=== PATIENT | female | born 1990 | race Caucasian/White ===

== ENCOUNTER 2017-10-01 10:23 | Inpatient (IN) ==
[2017-10-01] MEDS ORDERED: Citric Acid/Sodium Citrate Liq 30 ML UDC PO SCH (11:15)
[2017-10-01 11:38] LABS: Baso % (Auto) 0.5 % (0.0-2.0); Eos # (Auto) 0.1 th/mm3 (0.0-0.4); Eos % (Auto) 1.3 % (0.0-4.0); Hematocrit 33.6 % (35.0-46.0); Hemoglobin 10.9 gm/dL (11.6-15.3); Lymph # (Auto) 1.1 th/mm3 (1.0-4.8); Lymph % (Auto) 13.1 % (9.0-44.0); Mean Corpuscular HGB Conc 32.5 % (32.0-36.0); Mean Corpuscular Hemoglobin 23.7 pg (27.0-34.0); Mean Platelet Volume 7.4 fL (7.0-11.0); Mono # (Auto) 0.6 th/mm3 (0.0-0.9); Neut # (Auto) 6.7 th/mm3 (1.8-7.7); Neut % (Auto) 78.1 % (16.0-70.0); Platelet Count 237 th/mm3 (150-450); Red Blood Count 4.61 mil/mm3 (4.00-5.30); Red Cell Distribution Width 14.6 % (11.6-17.2); White Blood Count 8.6 th/mm3 (4.0-11.0)
--- NOTE | 2017-10-01 11:42 | P.HPOB ---
History of Present Illness Service: 39 week repeat CS Primary Care Physician: Matt Finch MD, PhD History of Present Illness: 26 yo here for repeat CS at 39 weeks Weeks Gestation:: 39 Para: 1 : 2 - Inpatient Certification I certify that the inpatient services were ordered in accordance with Medicare regulations governing the order. This includes certification that hospital inpatient services are reasonable and necessary and in the case of services not specified as inpatient-only under 42 CFR 419.22(n), that they are appropriately provided as inpatient services in accordance to with the 2-midnight benchmark under 43 CFR 412.3(e) Estimated Total Length of Stay (Days): 3 Plans for Post Hospital Care: Home Review of Systems All other systems reviewed negative except as stated in HPI PMFSH - Medical / Surgical Hx Neg / Unobtainable Medical Problems Denied: Yes Surgical History: No Previous Surgery - Medical History Medical History: Medical History (Last Updated 10/01/17 @ 11:40 by Vernon Mcintyre MD) delivery delivered - Tobacco History Second Hand Smoke Exposure: No Tobacco Use In Past 30 Days: No Smoking Status: Never smoker Medications and Allergies Active Medications: Active Medications Citric Acid/Sodium Citrate (Sodium Citrate/Citric Acid Liq) 30 ml PO MAST MAKER [facility] Stop: 10/05/17 11:14 Cefazolin Sodium 2,000 mg/ (Sodium Chloride) 100 mls @ 200 mls/hr IV.SIG MAST MAKER GAR[facility] Stop: 10/05/17 11:59 Lactated Ringer's (Lr 1000 Ml Inj) 1,000 mls @ 2,000 mls/hr IV.SIG .Q30M ONE Stop: 10/01/17 11:31 Lactated Ringer's (Lr 1000 Ml Inj) 1,000 mls @ 150 mls/hr IV.CONT .Q6H40M [facility] Allergies Allergy/AdvReac Type Severity Reaction Status Date / Time No Known Allergies Allergy Unverified 10/01/17 11:25 Exam Vital signs: Vital Signs 10/01/17 10:53 10/01/17 11:00 Temperature 98.4 F Pulse Rate 76 99 H Respiratory Rate 16 Blood Pressure 106/69 109/69 Intake & Output 09/30/17 10/01/17 10/01/17 18:59 06:59 18:59 Weight 158 kg Other: Weight On Admission 158 kg - Constitutional no acute distress - Routine HEENT Exam Head: Present: normocephalic ENT: Present: mucous membranes moist - Routine Neck Exam Present: supple - Routine Respiratory Exam Present: CTA bilaterally - Routine Cardiovascular Exam Present: RRR - Routine Abdominal Exam Present: soft, normoactive bowel sounds - Routine Extremities Exam Present: full ROM - Routine Skin Exam Present: intact - Routine Neurological Exam Present: alert, oriented X3 Results - Labs CBC & Chem 7: 10/01/17 11:15 Caprini VTE Risk Assessment Caprini VTE Risk Assessment: No/Low Risk (score <= 1) Mehdirini Risk Assessment Model: Point Value = 1 Point Value = 2 Point Value = 3 Point Value = 5 Age 41-60 Minor surgery BMI > 25 kg/m2 Swollen legs Varicose veins or History of unexplained or recurrent spontaneous Oral contraceptives or hormone replacement Sepsis (< 1 month) Serious lung disease, including pneumonia (< 1 month) Abnormal pulmonary function Acute myocardial infarction Congestive heart failure (< 1 month) History of inflammatory bowel disease Medical patient at bed rest Age 61-74 Arthroscopic surgery Major open surgery (> 45 min) Laparoscopic surgery (> 45 min) Malignancy Confined to bed (> 72 hours) Immobilizing plaster cast Central venous access Age >= 75 History of VTE Family history of VTE Factor V Leiden Prothrombin [id number] Lupus anticoagulant Anticardiolipin antibodies Elevated serum homocysteine Heparin-induced thrombocytopenia Other congenital or acquired thrombophilia Stroke (< 1 month) Elective arthroplasty Hip, pelvis, or leg fracture Acute spinal cord injury (< 1 month) Prophylaxis Regimen: Total Risk Factor Score Risk Level Prophylaxis Regimen 0-1 Low Early ambulation 2 Moderate Order ONE of the following: *Sequential Compression Device (SCD) *Heparin 5000 units SQ BID 3-4 Higher Order ONE of the following medications: *Heparin 5000 units SQ TID *Enoxaparin/Lovenox 40 mg SQ daily (WT < 150 kg, CrCl > 30 mL/min) *Enoxaparin/Lovenox 30 mg SQ daily (WT < 150 kg, CrCl > 10-29 mL/min) *Enoxaparin/Lovenox 30 mg SQ BID (WT < 150 kg, CrCl > 30 mL/min) AND/OR *Sequential Compression Device (SCD) 5 or more Highest Order ONE of the following medications: *Heparin 5000 units SQ TID (Preferred with Epidurals) *Enoxaparin/Lovenox 40 mg SQ daily (WT < 150 kg, CrCl > 30 mL/min) *Enoxaparin/Lovenox 30 mg SQ daily (WT < 150 kg, CrCl > 10-29 mL/min) *Enoxaparin/Lovenox 30 mg SQ BID (WT < 150 kg, CrCl > 30 mL/min) AND *Sequential Compression Device (SCD) Assessment and Plan - Diagnosis (1) delivery delivered Code(s): O82 - Encounter for delivery without indication Status: Acute (2) 39 weeks gestation of Code(s): Z3A.39 - 39 weeks gestation of Status: Acute - Plan CS and DC home pod #2
[2017-10-01] MEDS ORDERED: ceFAZolin Inj 2,000 MG in Sodium Chlor 0.9% Inj 80 ML IV.SIG SCH (12:00)
[2017-10-01] MEDS ORDERED: Morphine Sulfate PF Inj 5 MG/10 ML Ampul ONE (12:15)
[2017-10-01] MEDS ORDERED: Naloxone Inj 0.4 MG/ML Vial IV.PUSH PRN (12:30)
[2017-10-01] MEDS ORDERED: Phenylephrine/NS 1000 MCG/10ML Syringe IV.PUSH ONE (13:11)
[2017-10-01] MEDS ORDERED: Ketorolac Inj 30 MG/ML (IVP) Vial IV.PUSH ONE (13:11)
[2017-10-01] MEDS ORDERED: Oxytocin 30 Units/500ml Premix 30 UNITS/500 ML BAG IV.SIG ONE ×2 (13:23→19:10)
--- NOTE | 2017-10-01 13:26 | P.OBDELI ---
Procedure Note - Pre Op Diagnosis (1) delivery delivered (2) 39 weeks gestation of - Post Op Diagnosis (1) delivery delivered (2) 39 weeks gestation of Performed by: Vernon Mcintyre MD Procedure: Repeat Low Transverse Section Indication for Delivery: Desired elective repeat Informed Consent Obtained: For anesthesia, For procedure Confirmed Correct: Patient, Procedure, Time-out taken Anesthesia: Spinal Monitoring During Procedure: Blood pressure monitoring Urinary Catheter: Inserted using sterile technique, To dependent drainage Sterile Preparation: Duraprep Position: Supine with wedge to left side - Operative Features Skin Incision: Pfannenstiel Uterine Incision: Low transverse w/knife / blunt ext Membranes Ruptured: Artificially Presentation: Occiput anterior Status of Infant: Viable Placenta Delivered: Intact Medications: Antibiotics (vacuum applied 2x easy pull at ociput) Estimated blood loss (mL): 400 Procedure Tolerated: Well Maternal Condition: Stable Baby Condition: Stable - Infant Infant: Male
[2017-10-01] MEDS ORDERED: fentaNYL Citrate Inj 100 MCG/2 ML Ampul ONE (14:03)
--- NOTE | 2017-10-01 14:04 | MP ---
cc: Vernon Mcintyre MD DATE OF OPERATION: 10/01/2017 PROCEDURE PERFORMED: Repeat low transverse section with an umbilical hernia repair. PREOPERATIVE DIAGNOSIS: At 39 weeks for elective repeat. POSTOPERATIVE DIAGNOSIS: At 39 weeks for elective repeat. SURGEON: Vernon Mcintyre MD ESTIMATED BLOOD LOSS: 400 mL. COMPLICATIONS: None. FINDINGS: Live male , Apgars of 8 and 9. Vacuum was applied. ANESTHESIA: Spinal, Lashae Flores, STRIP MACHINE TENDER. COMPLICATIONS: None. PROCEDURE IN DETAIL: After informed consent, the patient was taken to the operating room where she was placed under spinal anesthesia, placed in supine position with left lateral tilt and abdomen, perineum, and vagina were prepped and draped in normal sterile fashion. After adequate anesthesia and a timeout was taken for both the and the umbilical hernia repair and the patient's was brought into the room, a Pfannenstiel skin incision was carried sharply through the old scar to the fascia. The fascia was nicked in the midline. The incision was extended laterally using Granados scissors. The rectus muscle dissected off the fascia with sharp dissection secondary to scar tissue and the rectus muscle was , peritoneum had to be entered sharply secondary scar tissue. Once the peritoneum was entered, we found some scar tissue of the uterus to the anterior abdominal wall, which were some loose filmy adhesions. These were all taken down with scissors. Once the bladder flap was created, bladder was noted to be pulled way up on the uterus, bladder flap was created and then the bladder was pushed down. A low transverse uterine incision was then made, carried sharply to the uterine cavity, clear fluid was noted. The uterine incision was enlarged using blunt traction. A hand was placed into the uterus. The 's head did not readily come to the incision. Despite fundal pressure, the 's head still did not come down very well and seemed to be very movable. Once we got it applied, but not delivering, a vacuum was applied to the occiput portion. With gentle traction upward, the infant's head came down slightly and the vacuum popped off with not much traction. The infant's head was repositioned so the occiput could be grasped and then the vacuum applied one more time. Using 2 techs to push the baby at the fundus and gentle traction upward, the head delivered. Once the head delivered, shoulders were delivered. The infant was noted to be not attempting respiratory effort, so the cord was clamped and cut without delaying 45 seconds. Once the infant was handed to pediatrics, it started to cry and by the time respiratory therapy saw the within the first 20 seconds, the infant was crying well. The cord blood was collected. Placenta was delivered manually. The uterus exteriorized, wiped free from all remaining products of conception. The uterine incision was closed in a running locked stitch of chromic suture. Good hemostasis was achieved. The uterus was placed back in the abdomen. At this point, our attention was turned to the hernia where she had about a 3 cm defect at the umbilicus. We used three 0 Vicryl sutures to suture this defect closed. There was some fat-containing material at the umbilicus, which was not taken out. There was no adherent bowel or omentum to this area. Once this was closed primarily with Vicryl suture with good closure of the defect, our attention was turned to the peritoneum. The peritoneum was closed with Vicryl suture. The fascia was closed with Vicryl suture in a running stitch and the skin was closed with subcuticular stitch. Each layer was noted to be hemostatic prior to closure and the patient tolerated the procedure well. She was taken to the recovery room in stable condition. The went there also. MD LELA Smith/SOHA , 01:31 PM , 02:03 PM
[2017-10-01] MEDS ORDERED: Oxytocin 30 Units/500ml Premix 30 UNITS/500 ML BAG IV.SIG PRN (18:23)
[2017-10-01] MEDS: Senna/Docusate Sodium 8.6/50 MG Tablet PO PRN (21:20)
[2017-10-02 01:49] LABS: Bilirubin,Urine Negative (Negative); Clarity,Urine Clear (Clear); Color,Urine Straw (Yellw/Straw); Glucose,Urine (UA) 500 or Greater mg/dL (Negative); Leukocyte Esterase,Urine Negative (Negative); Mucus,Urine Few /lpf (Occasional); Nitrite,Urine Negative (Negative); Specific Gravity,Urine 1.003 (1.002-1.035)
[2017-10-02 01:51] LABS: Amphetamine Screen,Urine Neg (Neg); Barbiturate Screen,Urine Neg (Neg); Cannabinoid Screen,Urine Neg (Neg); Cocaine Screen,Urine Neg (Neg)
[2017-10-02 02:05] LABS: Opiate Screen,Urine Neg (Neg)
[2017-10-02 06:21] LABS: Baso % (Auto) 0.3 % (0.0-2.0); Eos # (Auto) 0.2 th/mm3 (0.0-0.4); Eos % (Auto) 1.4 % (0.0-4.0); Hematocrit 30.6 % (35.0-46.0); Hemoglobin 9.8 gm/dL (11.6-15.3); Lymph # (Auto) 1.5 th/mm3 (1.0-4.8); Lymph % (Auto) 12.8 % (9.0-44.0); Mean Corpuscular HGB Conc 31.9 % (32.0-36.0); Mean Corpuscular Hemoglobin 23.4 pg (27.0-34.0); Mean Corpuscular Volume 73.4 fL (80.0-100.0); Mean Platelet Volume 7.2 fL (7.0-11.0); Mono % (Auto) 8.9 % (0.0-8.0); Neut # (Auto) 8.9 th/mm3 (1.8-7.7); Neut % (Auto) 76.6 % (16.0-70.0); Platelet Count 222 th/mm3 (150-450); Red Blood Count 4.17 mil/mm3 (4.00-5.30); Red Cell Distribution Width 14.9 % (11.6-17.2); White Blood Count 11.6 th/mm3 (4.0-11.0)
[2017-10-02] MEDS ORDERED: Ibuprofen 600 MG Tablet PO PRN (08:42)
--- NOTE | 2017-10-02 09:42 | P.PNOB ---
Subjective Post day: 11 Interval history: patient having pain and trouble voiding and has had 2x in and out cath Objective Vital Signs/I&O: Vital Signs 10/01/17 10:53 10/01/17 11:00 10/01/17 12:00 Temperature 98.4 F Pulse Rate 76 99 H 72 Respiratory Rate 16 Blood Pressure 106/69 109/69 116/63 10/01/17 13:30 10/01/17 13:45 10/01/17 13:55 Temperature 97.9 F Pulse Rate 75 83 70 Respiratory Rate 16 17 18 Blood Pressure 119/54 L 118/56 L 94/64 L 10/01/17 14:02 10/01/17 14:03 10/01/17 14:45 Temperature 97.9 F Pulse Rate 75 72 Respiratory Rate 18 18 Blood Pressure 103/60 106/52 L 10/01/17 20:13 10/02/17 00:00 10/02/17 04:00 Temperature 96.7 F L 98.2 F 98.0 F Pulse Rate 66 61 73 Respiratory Rate 19 17 18 Blood Pressure 106/64 105/65 97/51 L 10/02/17 08:00 Temperature 98.0 F Pulse Rate 78 Respiratory Rate 20 Blood Pressure 105/67 Intake & Output 10/01/17 10/02/17 10/02/17 18:59 06:59 18:59 Weight 158 kg Other: Weight On Admission 158 kg Result Diagrams: 10/02/17 05:37 Objective Remarks: GENERAL: Well-nourished, well-developed patient. ABDOMEN/GI: Abdomen soft, non-tender. Fundus: Firm, non-tender at umbilicus. GENITOURINARY: Light to moderate bleeding. EXTREMITIES: No cyanosis or edema, non-tender, without signs of DVT. Medications and IVs: Active Medications Citric Acid/Sodium Citrate (Sodium Citrate/Citric Acid Liq) 30 ml PO AUDIT SPECIALIST GARRET Stop: 10/05/17 11:14 Diphenhydramine HCl (Benadryl Inj) 25 mg IV.PUSH Q6H PRN PRN Reason: MILD TO MODERATE ITCHING Stop: 10/02/17 12:29 Diphenhydramine HCl (Benadryl) 50 mg PO Q6H PRN PRN Reason: MILD TO MODERATE ITCHING Stop: 10/02/17 12:29 Diphtheria/Pertussis/Tetanus Vacc (Boostrix Vaccine Inj) 0.5 ml IM .ONCE ONE Stop: 10/02/17 16:01 Cefazolin Sodium 2,000 mg/ (Sodium Chloride) 100 mls @ 200 mls/hr IV.SIG AUDIT SPECIALIST [facility] Stop: 10/05/17 11:59 Lactated Ringer's (Lr 1000 Ml Inj) 1,000 mls @ 150 mls/hr IV.CONT .Q6H40M [facility] Oxytocin (Pitocin 30 Units/Ns 500 Ml Premix) 30 units in 500 mls @ 100 mls/hr IV.SIG PRN PRN PRN Reason: Heavy bleeding Stop: 10/02/17 18:22 Lactated Ringer's (Lr 1000 Ml Inj) 1,000 mls @ 100 mls/hr IV.CONT .Q10H [facility] Stop: 10/02/17 14:22 Last Admin: 10/01/17 21:22 Dose: 100 mls/hr Lactated Ringer's (Lr 1000 Ml Inj) 1,000 mls @ 100 mls/hr IV.CONT .Q10H [facility] Stop: 10/02/17 20:09 Measles/Mumps/Rubella Vaccine Live (M-M-R Ii Vaccine Inj) 0.5 ml SQ .ONCE ONE Stop: 10/02/17 16:01 Miscellaneous Information (Misc Nursing Information) 1 each OTHER UNSCH PRN PRN Reason: SEE LABEL COMMENTS Stop: 10/02/17 12:29 Miscellaneous Information (Misc Nursing Information) 1 each OTHER UNSCH PRN PRN Reason: SEE LABEL COMMENTS Stop: 10/02/17 12:29 Naloxone HCl (Narcan Inj) 0.4 mg IV.PUSH UNSCH PRN PRN Reason: SEE LABEL COMMENTS Stop: 10/02/17 12:29 Ondansetron HCl (Zofran Inj) 4 mg IV.PUSH Q6H PRN PRN Reason: NAUSEA OR VOMITING Oxycodone/Acetaminophen (Percocet 5/325 Mg) 1 tab PO Q4H PRN PRN Reason: PAIN SCALE 3 TO 5 Last Admin: 10/01/17 21:21 Dose: 1 tab Oxycodone/Acetaminophen (Percocet 5/325 Mg) 2 tab PO Q4H PRN PRN Reason: PAIN SCALE 6 TO 10 Last Admin: 10/02/17 06:34 Dose: 2 tab Senna/Docusate Sodium (Emily-Colace) 2 tab PO Q12H PRN PRN Reason: CONSTIPATION Last Admin: 10/01/17 21:20 Dose: 2 tab Simethicone (Mylicon Chew) 80 mg PO QID PRN PRN Reason: FLATULENCE Sodium Chloride (Ns Flush) 2 ml IV.FLUSH BID [facility] Last Admin: 10/01/17 20:41 Dose: Not Given Sodium Chloride (Ns Flush) 2 ml IV.FLUSH PRN PRN PRN Reason: FLUSH AFTER USING IV ACCESS Sodium Chloride (Ns Flush) 2 ml IV.FLUSH BID [facility] Last Admin: 10/01/17 20:41 Dose: Not Given Sodium Chloride (Ns Flush) 2 ml IV.FLUSH PRN PRN PRN Reason: FLUSH AFTER USING IV ACCESS Assessment and Plan - Diagnosis (1) delivery delivered Code(s): O82 - Encounter for delivery without indication Status: Acute (2) 39 weeks gestation of Code(s): Z3A.39 - 39 weeks gestation of Status: Acute - Plan CS and DC home pod #2, if patient does not void by noon please place small non latex cath until wednesday AM
[2017-10-02] MEDS: Simethicone 80 MG Chew Tablet PO PRN ×2 (10:12→21:28)
[2017-10-02] MEDS: Ibuprofen 400 MG Tablet PO PRN ×3 (10:12→20:25)
[2017-10-02] MEDS: Senna/Docusate Sodium 8.6/50 MG Tablet PO PRN (10:13)
[2017-10-02] MEDS ORDERED: Diphtheria/Tetanus/Pertussis Vaccine Inj 0.5 ML Syringe IM ONE (16:00)
[2017-10-02] MEDS ORDERED: Measles/Mumps/Rubella Vaccine Inj 0.5 ML Vial SQ ONE (16:00)
[2017-10-03] MEDS: Ibuprofen 400 MG Tablet PO PRN ×6 (00:22→21:24)
--- NOTE | 2017-10-03 11:14 | P.PNOB ---
Subjective Post day: 2 Interval history: Post op day #2 doing well. ok to dc in am Objective Vital Signs/I&O: Vital Signs 10/02/17 12:00 10/02/17 20:00 10/03/17 08:00 Temperature 98.4 F 98.1 F 97.8 F Pulse Rate 97 H 63 84 Respiratory Rate 18 18 Blood Pressure 107/68 97/58 L 106/64 Result Diagrams: 10/02/17 05:37 Objective Remarks: GENERAL: Well-nourished, well-developed patient. ABDOMEN/GI: Abdomen soft, non-tender. Fundus: Firm, non-tender at umbilicus. GENITOURINARY: Light to moderate bleeding. EXTREMITIES: No cyanosis or edema, non-tender, without signs of DVT. Medications and IVs: Active Medications Citric Acid/Sodium Citrate (Sodium Citrate/Citric Acid Liq) 30 ml PO PLANT WRAPPER [facility] Stop: 10/05/17 11:14 Cefazolin Sodium 2,000 mg/ (Sodium Chloride) 100 mls @ 200 mls/hr IV.SIG PLANT WRAPPER [facility] Stop: 10/05/17 11:59 Lactated Ringer's (Lr 1000 Ml Inj) 1,000 mls @ 150 mls/hr IV.CONT .Q6H40M [facility] Ondansetron HCl (Zofran Inj) 4 mg IV.PUSH Q6H PRN PRN Reason: NAUSEA OR VOMITING Oxycodone/Acetaminophen (Percocet 5/325 Mg) 1 tab PO Q4H PRN PRN Reason: PAIN SCALE 3 TO 5 Last Admin: 10/02/17 16:43 Dose: 1 tab Oxycodone/Acetaminophen (Percocet 5/325 Mg) 2 tab PO Q4H PRN PRN Reason: PAIN SCALE 6 TO 10 Last Admin: 10/03/17 08:47 Dose: 2 tab Senna/Docusate Sodium (Emily-Colace) 2 tab PO Q12H PRN PRN Reason: CONSTIPATION Last Admin: 10/02/17 10:13 Dose: 2 tab Simethicone (Mylicon Chew) 80 mg PO QID PRN PRN Reason: FLATULENCE Last Admin: 10/02/17 21:28 Dose: 80 mg Sodium Chloride (Ns Flush) 2 ml IV.FLUSH BID [facility] Last Admin: 10/01/17 20:41 Dose: Not Given Sodium Chloride (Ns Flush) 2 ml IV.FLUSH PRN PRN PRN Reason: FLUSH AFTER USING IV ACCESS Sodium Chloride (Ns Flush) 2 ml IV.FLUSH BID [facility] Last Admin: 10/02/17 17:18 Dose: Not Given Sodium Chloride (Ns Flush) 2 ml IV.FLUSH PRN PRN PRN Reason: FLUSH AFTER USING IV ACCESS Assessment and Plan - Diagnosis (1) delivery delivered Code(s): O82 - Encounter for delivery without indication Status: Acute (2) 39 weeks gestation of Code(s): Z3A.39 - 39 weeks gestation of Status: Acute - Plan CS and DC home pod #2, if patient does not void by noon please place small non latex cath until wednesday AM
[2017-10-03] MEDS: Simethicone 80 MG Chew Tablet PO PRN (17:35)
[2017-10-04] MEDS: Simethicone 80 MG Chew Tablet PO PRN (01:33)
[2017-10-04] MEDS: Ibuprofen 400 MG Tablet PO PRN ×3 (01:34→10:10)
[2017-10-04] MEDS: Senna/Docusate Sodium 8.6/50 MG Tablet PO PRN (01:34)
--- NOTE | 2017-10-04 08:48 | P.PNOB ---
Subjective Post day: 3 Interval history: doing well Objective Vital Signs/I&O: Vital Signs 10/03/17 19:00 10/04/17 08:00 Temperature 97.5 F L 98.2 F Pulse Rate 81 76 Respiratory Rate 14 18 Blood Pressure 113/68 100/70 Result Diagrams: 10/02/17 05:37 Objective Remarks: GENERAL: Well-nourished, well-developed patient. CARDIOVASCULAR: Regular rate and rhythm without murmurs, gallops, or rubs. RESPIRATORY: Breath sounds equal bilaterally. No accessory muscle use. ABDOMEN/GI: Abdomen soft, non-tender. Fundus: Firm, non-tender at umbilicus. GENITOURINARY: Light to moderate bleeding. EXTREMITIES: No cyanosis or edema, non-tender, without signs of DVT. Medications and IVs: Active Medications Citric Acid/Sodium Citrate (Sodium Citrate/Citric Acid Liq) 30 ml PO MULTI LINE CLAIMS ADJUSTER [facility] Stop: 10/05/17 11:14 Cefazolin Sodium 2,000 mg/ (Sodium Chloride) 100 mls @ 200 mls/hr IV.SIG MULTI LINE CLAIMS ADJUSTER [facility] Stop: 10/05/17 11:59 Lactated Ringer's (Lr 1000 Ml Inj) 1,000 mls @ 150 mls/hr IV.CONT .Q6H40M [facility] Ondansetron HCl (Zofran Inj) 4 mg IV.PUSH Q6H PRN PRN Reason: NAUSEA OR VOMITING Oxycodone/Acetaminophen (Percocet 5/325 Mg) 1 tab PO Q4H PRN PRN Reason: PAIN SCALE 3 TO 5 Last Admin: 10/02/17 16:43 Dose: 1 tab Oxycodone/Acetaminophen (Percocet 5/325 Mg) 2 tab PO Q4H PRN PRN Reason: PAIN SCALE 6 TO 10 Last Admin: 10/04/17 05:31 Dose: 2 tab Senna/Docusate Sodium (Emily-Colace) 2 tab PO Q12H PRN PRN Reason: CONSTIPATION Last Admin: 10/04/17 01:34 Dose: 2 tab Simethicone (Mylicon Chew) 80 mg PO QID PRN PRN Reason: FLATULENCE Last Admin: 10/04/17 01:33 Dose: 80 mg Sodium Chloride (Ns Flush) 2 ml IV.FLUSH BID [facility] Last Admin: 10/03/17 18:04 Dose: Not Given Sodium Chloride (Ns Flush) 2 ml IV.FLUSH PRN PRN PRN Reason: FLUSH AFTER USING IV ACCESS Sodium Chloride (Ns Flush) 2 ml IV.FLUSH BID [facility] Last Admin: 10/03/17 18:07 Dose: Not Given Sodium Chloride (Ns Flush) 2 ml IV.FLUSH PRN PRN PRN Reason: FLUSH AFTER USING IV ACCESS Assessment and Plan - Diagnosis (1) delivery delivered Code(s): O82 - Encounter for delivery without indication Status: Acute (2) 39 weeks gestation of Code(s): Z3A.39 - 39 weeks gestation of Status: Acute - Plan CS and DC home pod #2, if patient does not void by noon please place small non latex cath until wednesday AM
--- NOTE | 2017-10-04 08:54 | P.DS ---
Date of admission: 10/01/17 10:23 Primary care physician: Matt Finch MD, PhD Brief History from admission: 26 yo here for repeat CS at 39 weeks DS: Diagnosis - Discharge Diagnosis (1) delivery delivered Status: Acute (2) 39 weeks gestation of Status: Acute DS: Medications - Discharge Medications Prescriptions: oxycodone-acetaminophen 2 tab PO Q4H PRN 3 Days #24 tab PRN Reason: Pain Scale 6 To 10 DS: Summary Hospital Course: patient came for elective CS and has done well for 3 days PP. Some urinary retention resolved - Time Spent with Patient Total time spent providing and/or coordinating discharge services: - Quality: VTE Deep Vein Thrombosis/Pulmonary Embolism Present on Admission: No Exam Vital signs: Vital Signs 10/03/17 19:00 10/04/17 08:00 Temperature 97.5 F L 98.2 F Pulse Rate 81 76 Respiratory Rate 14 18 Blood Pressure 113/68 100/70 - Constitutional no acute distress - Routine HEENT Exam Head: Present: normocephalic ENT: Present: mucous membranes moist - Routine Neck Exam Present: supple - Routine Respiratory Exam Present: CTA bilaterally - Routine Cardiovascular Exam Present: RRR - Routine Abdominal Exam Present: soft, normoactive bowel sounds - Routine Skin Exam Present: intact - Routine Neurological Exam Present: alert, oriented X3 Results Procedures completed during hospitalization: section Discharge Plan - Discharge Disposition Patient Disposition: 01 Discharge Home - Discharge Condition Condition: Good - Discharge Order Discharge Orders: Discharge Order (Routine); Ordered 10/04/17 Ordered By: Vernon Mcintyre - Physicians Team Primary Care Provider: Matt Finch Attending Provider: Vernon Mcintyre - Rxs /Orders / Referrals /Forms Prescriptions: New oxycodone-acetaminophen 5-325 mg Tablet 2 tab PO Q4H PRN (Reason: Pain Scale 6 To 10) 3 Days Qty: 24 RF: 0 Referrals: Matt Finch MD, PhD [Primary Care Provider] - See Instructions - Discharge Instructions Additional Instructions: follow up 2 weeks - Post Discharge Care Plan Care Plan Goals: Your Health Problems: Goals to Promote Your Health: * To prevent worsening of your condition * To maintain your health at the optimal level Directions to Meet Your Goals: * Take your medications as prescribed * Follow your dietary instruction * Follow activity as directed * Keep your appointments as scheduled * Take your immunizations and boosters as scheduled * If your symptoms worsen call your PCP * If no PCP go to Urgent Care or Emergency Room Smoking is dangerous to your health. Avoid second hand smoke. You may reach the 24-hour crisis hotline for domestic abuse at .
== END 2017-10-04 13:12 | disposition home or self-care (01) ==
LOC: H2E 10:23 → H1EA 14:25
PROVIDERS: ADMIT Obstetrics & Gynecology; ATTEND Obstetrics & Gynecology